=== PATIENT | male | born 1995 | race Hispanic/Latino ===

== ENCOUNTER 2020-10-16 08:29 | Emergency (ER) | payer BC, SELFPAY ==
[2020-10-16 08:31] VITALS: BP 148/92; PULSE 100; RESP 20; TEMP 36.6; O2SAT 100
[2020-10-16 09:05] LABS: Add Urine Microscopic? YES; Appearance Urine Cloudy (Clear); Bacteria Urine Trace /hpf; Bilirubin Urine Negative (Negative); Blood Urine 3+ (Negative); Color Urine Yellow (Yellow); Glucose Urine UA Negative (Negative); Ketones Urine Negative (Negative); Leukocyte Esterase Ur 1+ LEU/UL (Negative); Mucus Urine Rare /lpf; Nitrate Urine Negative (Negative); Protein Urine 1+ mg/dL (Negative); RBC Urine >75 /hpf (0-2); Specific Grav Ur 1.008 (1.001-1.035); Squamous Epithelial Cell Urine Rare /hpf (Few); Urobilinogen Urine Negative mg/dL (<2.0); WBC Urine 31-50 /hpf
[2020-10-16 09:23] LABS: Basophils Percent Auto 0.7 % (0.2-1.2); Eosinophils Absolute Auto 0.1 K/mm3 (0-0.3); Hematocrit 49.5 % (42.0-52.0); Immature Granulocyte Absolute 0.02 K/mm3 (0.00-0.031); Immature Granulocyte Percent A 0.3 % (0-0.5); Lymphocytes Absolute Auto 2.08 K/mm3 (0.9-3.2); Lymphocytes Percent Auto 34.3 % (18.3-44.2); Mean Corpuscular HGB Conc 34.3 g/dl (32-36); Mean Corpuscular Hemoglobin 30.3 pg (26-34); Mean Corpuscular Volume 88.2 fl (80-100); Mean Platelet Volume 9.5 fl (7.4-10.4); Monocytes Absolute Auto 0.4 K/mm3 (0.1-0.6); Monocytes Percent Auto 6.3 % (2.6-8.5); Neutrophils Absolute Auto 3.5 K/mm3 (1.3-6.7); Neutrophils Percent Auto 57.4 % (45.5-73.1); Platelet Count Result 314 k/mm3 (150-375); Red Blood Count 5.61 M/mm3 (4.6-6.20); Red Cell Distribution Width 12.2 % (11.5-14.5); White Blood Count 6.1 K/mm3 (4.5-10.0)
[2020-10-16 09:58] LABS: Alanine Aminotransferase 44 U/L (4-50); Albumin Level 4.9 g/dL (3.5-5.1); Alkaline Phosphatase 61 U/L (38-126); Anion Gap 13 mmol/L (8-16); Aspartate Amino Transferase 78 U/L (17-59); Bilirubin,Total 0.4 mg/dL (0.2-1.3); Blood Urea Nitrogen 8 mg/dL (9-20); Calcium 9.4 mg/dL (8.4-10.2); Carbon Dioxide 24 mmol/L (22-30); Chloride 106 mmol/L (98-107); Estimated CRCL calculation 92 ml/min; Estimated Glomerular Filt Rate > 60; Glucose 106 mg/dL (75-110); Potassium 4.4 mmol/L (3.4-5.0); Sodium 143 mmol/L (137-145)
[2020-10-16] MEDS: SODIUM CHLORIDE 0.9% IV 1,000 ML 999 ML IV CONT (10:39)
--- NOTE | 2020-10-16 11:24 | ED.GENADULT ---
HPI - General Adult General Chief complaint: Unspecified Stated complaint: EJACULATION THEN PEEING BLOOD Time Seen by Provider: 10/16/20 10:05 Source: patient Mode of arrival: ambulatory Limitations: no limitations History of Present Illness HPI narrative: Patient 25-year-old male who presents to emergency department for evaluation of hematuria that began after having intercourse and masturbating notes that he passed pink-tinged urine with some clots denying any pain. Patient denies similar occurrence in the past. On arrival to emergency department patient notes that his urine is beginning to clear and he has no pain. Patient denied any abdominal pain testicular pain or back pain patient has not taken anything for his symptoms Related Data Allergies Allergy/AdvReac Type Severity Reaction Status Date / Time bee venom protein (honey bee) Allergy Severe EDEMA Verified 10/16/20 10:29 Review of Systems Review of Systems: All systems reviewed & are unremarkable except as noted in HPI and below PMFSH Social History Social History (Updated 10/16/20 @ 11:33 by Hamilton Reza PA-C) Smoking status: Never smoker Gender identity (if verbalized by the patient): Male Exam Narrative: Exam Narrative: GENERAL: Well-appearing, well-nourished, and in no acute distress. HEAD: Normocephalic, atraumatic. EYES: PERRLA and EOMI. ENT: Nares clear, no rhinorrhea or epistaxis. Mucous membranes moist. CHEST: Clear to auscultation. No respiratory distress. No wheezes rales or rhonchi HEART: Regular rate and rhythm. No murmur heard. Normal peripheral pulses. ABDOMEN: Soft, nontender, nondistended EXTREMITIES: Normal range of motion. No edema. SKIN: Warm, dry, no rash. NEURO: No focal deficits. Alert and oriented x3. Cranial nerves II through XII grossly intact PSYCH: Normal mood and affect. Course Course Emergency Course: Patient's urine has cleared during the emergency department he was hydrated will have urine culture urine sent off for chlamydia gonorrhea was given fluids and antibiotic in the emergency department patient had a plan developed for follow-up with primary care and urology patient agrees with this plan he has also been given reasons to return if symptoms worsen or concerns and agrees to do so Vital Signs Vital signs: Vital Signs Temperature 98 F 10/16/20 08:31 Pulse Rate 100 10/16/20 08:31 Respiratory Rate 20 10/16/20 08:31 Blood Pressure 148/92 H 10/16/20 08:31 Pulse Oximetry 100 10/16/20 08:31 Temperature 98 F 10/16/20 08:31 Pulse Rate 100 10/16/20 08:31 Respiratory Rate 20 10/16/20 08:31 Blood Pressure 148/92 H 10/16/20 08:31 Pulse Oximetry 100 10/16/20 08:31 Medical Decision Making MDM Narrative Medical decision making narrative: Patient presented with hematuria will be referred to urology and primary care for further evaluation given instructions to return if symptoms worsen hemodynamically stable ABCs and vital signs intact patient will be sent home on antibiotics patient agrees with this plan Vital Signs Vital Signs: Vital Signs Temperature 98 F 10/16/20 08:31 Pulse Rate 100 10/16/20 08:31 Respiratory Rate 20 10/16/20 08:31 Blood Pressure 148/92 H 10/16/20 08:31 Pulse Oximetry 100 10/16/20 08:31 Temperature 98 F 10/16/20 08:31 Pulse Rate 100 10/16/20 08:31 Respiratory Rate 20 10/16/20 08:31 Blood Pressure 148/92 H 10/16/20 08:31 Pulse Oximetry 100 10/16/20 08:31 Lab Data Result diagrams: 10/16/20 09:18 10/16/20 09:18 Labs: Lab Results 10/16/20 10/16/20 10/16/20 Range/Units 08:50 09:18 09:18 WBC 6.1 (4.5-10.0) K/mm3 RBC 5.61 (4.6-6.20) M/mm3 Hgb 17.0 (14.0-18.0) g/dL Hct 49.5 (42.0-52.0) % MCV 88.2 (80-100) fl MCH 30.3 (26-34) pg MCHC 34.3 (32-36) g/dl RDW 12.2 (11.5-14.5) % Plt Count 314 (150-375) k/mm3 MPV 9.5 (7.4-10.4) fl Immature Gran %
[2020-10-16 11:41] VITALS: BP 125/70; PULSE 78; O2SAT 100
== END 2020-10-16 11:43 | disposition home or self-care (01) ==
PROVIDERS: Emergency Medicine Emergency Medical Services; Emergency Provider Emergency Medicine
DX: R31.9 Hematuria, unspecified (principal)
CPT/HCPCS: 36415; 80053; 81001; 85025; 87086; 87491; 87591; 96361; 96374; 99284; J0696; J7030

== ENCOUNTER 2020-10-18 14:06 | Emergency (ER) | payer BC, SELFPAY ==
--- NOTE | ~2020-10-18 | CT_ITS ---
EXAMINATION: CT abdomen pelvis wo con DATE: 10/18/2020 15:54 INDICATION: Right flank pain with hematuria TECHNIQUE: Computed tomography (CT) of the abdomen and pelvis was performed without intravenous contr ast. Automated exposure control and iterative reconstruction technique were employed. The dose-length product was 187.56 mGy-cm. COMPARISON: None FINDINGS: Lung bases are clear. Visualized inferior heart is normal. No pericardial or pleural effusion. Border line elevated hepatic attenuation. Gallbladder, spleen, pancreas and bilateral adrenal glands are nor mal. Kidneys and ureters are normal with no urolithiasis, hydroureteronephrosis or perinephric/ureter al stranding. Normal bladder. Bowels including the appendix are normal with moderate amount of coloni c stool. No free intraperitoneal gas or fluid. No pathologically enlarged abdominal or pelvic lymphad enopathy. Bones are unremarkable. IMPRESSION: 1. Elevated hepatic attenuation which could be seen with iron deposition in the setting of hemosidero sis or hemachromatosis, copper deposition and Rosendo's disease, glycogen storage diseases or with chr onic amiodarone use. 2. No urolithiasis, hydronephrosis or acute intra-abdominal/pelvic process. Reviewed, dictated and finalized at location A. IMPRESSION: 1. Elevated hepatic attenuation which could be seen with iron deposition in the setting of hemosiderosis or hemachromatosis, copper deposition and Rosendo's di sease, glycogen storage diseases or with chronic amiodarone use. 2. No urolithiasis, hydronephrosis or acute intra-abdominal/pelvic process.
[2020-10-18 14:18] VITALS: BP 133/68; PULSE 76; RESP 16; TEMP 36.4; O2SAT 100
[2020-10-18 14:35] LABS: Basophils Percent Auto 0.4 % (0.2-1.2); Eosinophils Absolute Auto 0.1 K/mm3 (0-0.3); Eosinophils Percent Auto 2.5 % (0-4.4); Hematocrit 44.3 % (42.0-52.0); Hemoglobin 15.2 g/dL (14.0-18.0); Immature Granulocyte Absolute 0.01 K/mm3 (0.00-0.031); Immature Granulocyte Percent A 0.2 % (0-0.5); Lymphocytes Absolute Auto 1.81 K/mm3 (0.9-3.2); Lymphocytes Percent Auto 32.7 % (18.3-44.2); Mean Corpuscular HGB Conc 34.3 g/dl (32-36); Mean Corpuscular Hemoglobin 30.2 pg (26-34); Mean Corpuscular Volume 88.1 fl (80-100); Mean Platelet Volume 9.5 fl (7.4-10.4); Monocytes Absolute Auto 0.5 K/mm3 (0.1-0.6); Monocytes Percent Auto 8.1 % (2.6-8.5); Neutrophils Absolute Auto 3.1 K/mm3 (1.3-6.7); Neutrophils Percent Auto 56.1 % (45.5-73.1); Platelet Count Result 274 k/mm3 (150-375); Red Blood Count 5.03 M/mm3 (4.6-6.20); White Blood Count 5.5 K/mm3 (4.5-10.0)
[2020-10-18 14:48] LABS: Anion Gap 7 mmol/L (8-16); Blood Urea Nitrogen 13 mg/dL (9-20); Calcium 9.1 mg/dL (8.4-10.2); Carbon Dioxide 30 mmol/L (22-30); Chloride 101 mmol/L (98-107); Estimated CRCL calculation 92 ml/min; Estimated Glomerular Filt Rate > 60; Glucose 83 mg/dL (75-110); Potassium 3.8 mmol/L (3.4-5.0); Sodium 138 mmol/L (137-145)
[2020-10-18 14:52] LABS: Add Urine Microscopic? YES; Appearance Urine Cloudy (Clear); Bilirubin Urine Negative (Negative); Blood Urine Negative (Negative); Color Urine Yellow (Yellow); Glucose Urine UA Negative (Negative); Ketones Urine Negative (Negative); Leukocyte Esterase Ur Trace LEU/UL (Negative); Nitrate Urine Negative (Negative); Protein Urine Negative (Negative); RBC Urine 0-2 /hpf (0-2); Specific Grav Ur 1.015 (1.001-1.035)
--- NOTE | 2020-10-18 17:11 | ED.GENADULT ---
HPI - General Adult General Chief complaint: Back Pain/Injury Stated complaint: back pain Time Seen by Provider: 10/18/20 15:24 Source: patient Mode of arrival: ambulatory Limitations: no limitations History of Present Illness HPI narrative: Patient is a 25-year-old male presented to emergency department for evaluation of occasional right-sided pain. He states occasionally he feels some discomfort to the front lower abdomen. Was seen in this emergency department on 10-16-20 for evaluation hematuria after having sexual intercourse and masturbating. The urine culture report was negative. Patient states that he spoke with his primary care today when he mentions noted occasional pain to his right side they wanted him to be ruled out for kidney stones. He states he has not noticed any blood in his urine. He denies fever, chills, nausea, vomiting. He states that the pain is random and very mild. He denies any other symptoms or concerns. He has not taken anything for his symptoms. Related Data Allergies Allergy/AdvReac Type Severity Reaction Status Date / Time bee venom protein (honey bee) Allergy Severe EDEMA Verified 10/16/20 10:29 Review of Systems Review of Systems: Narrative: CONSTITUTIONAL: Denies fever, chills, or sweats. EYES: Denies visual changes, redness, or discharge. ENT: Denies rhinorrhea, congestion, sore throat, or otalgia. CARDIOVASCULAR: Denies chest pain, palpitations, or edema. RESPIRATORY: Denies cough or dyspnea. GASTROINTESTINAL: Denies abdominal pain, nausea, vomiting, or diarrhea. GENITOURINARY: Denies dysuria or hematuria. SKIN: Denies rash or itching. MUSCULOSKELETAL: Reports intermittent right flank pain denies back pain, joint pain, or myalgia. NEUROLOGIC: Denies headache, numbness, dizziness, or weakness. PSYCHIATRIC: Denies anxiety or depression. [facility] Social History Social History (Updated 10/16/20 @ 11:33 by Hamilton Reza PA-C) Smoking status: Never smoker Gender identity (if verbalized by the patient): Male Exam Narrative: Exam Narrative: GENERAL: Well-appearing, well-nourished.Patient doesn't appear to be in any discomfort. HEAD: Normocephalic, atraumatic. EYES: PERRLA and EOMI. NECK: Supple. No adenopathy or masses. No vertebral tenderness or loss of ROM. CHEST: Clear to auscultation. No respiratory distress. No wheezes rales or rhonchi HEART: Regular rate and rhythm. Normal peripheral pulses. ABDOMEN: No CVA tenderness. Soft, nontender, nondistended, normal active bowel sounds. No bruises noted. EXTREMITIES: No acute changes in ROM. No edema. SKIN: Warm, dry, no rash. NEURO: No focal deficits. Alert and oriented x3. PSYCH: Normal mood and affect. Course Vital Signs Vital signs: Vital Signs Temperature 97.6 F 10/18/20 14:18 Pulse Rate 76 10/18/20 14:18 Respiratory Rate 16 10/18/20 14:18 Blood Pressure 133/68 10/18/20 14:18 Pulse Oximetry 100 10/18/20 14:18 Temperature 97.6 F 10/18/20 14:18 Pulse Rate 76 10/18/20 14:18 Respiratory Rate 16 10/18/20 14:18 Blood Pressure 133/68 10/18/20 14:18 Pulse Oximetry 100 10/18/20 14:18 Medical Decision Making MDM Narrative Medical decision making narrative: Patient's urine culture was negative. Patient does not have any hematuria. Patient CT was negative. He is not having discomfort at this time. Patient is instructed to follow-up with his primary care and return to emergency department if he has any worsening or emergent symptoms. Differential Diagnosis Differential Diagnosis: Hematuria, cystitis, urolithiasis Vital Signs Vital Signs: Vital Signs Temperature 97.6 F 10/18/20 14:18 Pulse Rate 76 10/18/20 14:18 Respiratory Rate 16 10/18/20 14:18 Blood Pressure 133/68 10/18/20 14:18 Pulse Oximetry 100 10/18/20 14:18 Temperature 97.6 F 10/18/20 14:18 Pulse Rate 76 10/18/20 14:18 Respiratory Rate 16 10/18/20 14:18 Blood Pressure 133/68 10/18/20 14:18 Pulse
[2020-10-18 17:53] VITALS: BP 120/72; PULSE 70; RESP 17; O2SAT 98
== END 2020-10-18 17:54 | disposition home or self-care (01) ==
PROVIDERS: Emergency Medicine; Emergency Provider Emergency Medicine
DX: M54.9 Dorsalgia, unspecified (principal); R93.2 Abnormal findings on diagnostic imaging of liver and biliary tract
CPT/HCPCS: 36415; 74176; 80048; 81001; 85025; 87086; 99284

== ENCOUNTER 2021-04-12 14:12 | Emergency (ER) | payer BC, SELFPAY ==
[2021-04-12 14:56] VITALS: BP 137/79; PULSE 61; RESP 16; TEMP 36.1; O2SAT 99
--- NOTE | 2021-04-12 15:21 | ED.GENADULT ---
HPI - General Adult General Chief complaint: Unspecified Time Seen by Provider: 04/12/21 15:15 Source: patient and RN notes reviewed Mode of arrival: ambulatory Limitations: no limitations History of Present Illness HPI narrative: Patient presents today after being stung by a bee on his chin around 1300 today. He is questing an EpiPen. He did have an anaphylactic reaction as a child and states his workplace is requiring him keep an EpiPen on him. States last time he was stung by bee he did require several days of steroids and is wondering if this would be a good idea for him today. Denies shortness of breath, difficulty swallowing, or any additional symptoms currently. MD complaint: Bee sting Related Data Allergies Allergy/AdvReac Type Severity Reaction Status Date / Time bee venom protein (honey bee) Allergy Severe EDEMA Verified 04/12/21 14:59 Review of Systems Review of Systems: CONSTITUTIONAL: Denies body aches, fever, chills, or sweats. EYES: Denies visual changes, redness, or discharge. ENT: Denies rhinorrhea, congestion, sore throat, or otalgia. CARDIOVASCULAR: Denies chest pain, palpitations, or edema. RESPIRATORY: Denies cough or dyspnea. GASTROINTESTINAL: Denies abdominal pain, nausea, vomiting, or diarrhea. GENITOURINARY: Denies dysuria or hematuria. SKIN: Denies rash, itching, or wounds. + Bee sting MUSCULOSKELETAL: Denies back pain, joint pain, or myalgia. NEUROLOGIC: Denies headache, numbness, tingling, or weakness. PSYCH: Denies depression or anxiety. PMFSH Social History Social History Smoking status: Never smoker Gender identity (if verbalized by the patient): Male Comments At time of signature, I have reviewed and agree with nursing past medical, surgical, social and family history unless otherwise noted. Please see nursing chart for further information. There is no relevant family history pertinent to the presenting complaint Exam Narrative: GENERAL: Well-appearing, well-nourished, and in no acute distress. HEAD: Normocephalic, atraumatic. EYES: EOMI. No redness or drainage. Conjunctivae normal. ENT: Mucous membranes pink and moist. NECK: Normal AROM. No obvious bee sting or localized swelling noted to the right chin. CHEST: No respiratory distress. Clear to auscultation. HEART: Regular rate and rhythm. No murmur appreciated. Normal peripheral pulses. EXTREMITIES: Normal range of motion. No edema. SKIN: Warm, dry, no rash. Capillary refill normal. Normal skin turgor. NEURO: No focal deficits. Alert and oriented x3. Gait steady. PSYCH: Normal affect. No signs of depression or anxiety. Course Vital Signs Vital signs: Vital Signs Temperature 97.0 F L 04/12/21 14:56 Pulse Rate 61 04/12/21 14:56 Respiratory Rate 16 04/12/21 14:56 Blood Pressure 137/79 04/12/21 14:56 Pulse Oximetry 99 04/12/21 14:56 Temperature 97.0 F L 04/12/21 14:56 Pulse Rate 61 04/12/21 14:56 Respiratory Rate 16 04/12/21 14:56 Blood Pressure 137/79 04/12/21 14:56 Pulse Oximetry 99 04/12/21 14:56 Reviewed. Pt has been instructed to follow up with his PCP regarding his elevated blood pressure today. Medical Decision Making Differential Diagnosis Differential Diagnosis: Bee sting, anaphylaxis, allergic reaction insect sting Vital Signs Vital Signs: Vital Signs Temperature 97.0 F L 04/12/21 14:56 Pulse Rate 61 04/12/21 14:56 Respiratory Rate 16 04/12/21 14:56 Blood Pressure 137/79 04/12/21 14:56 Pulse Oximetry 99 04/12/21 14:56 Temperature 97.0 F L 04/12/21 14:56 Pulse Rate 61 04/12/21 14:56 Respiratory Rate 16 04/12/21 14:56 Blood Pressure 137/79 04/12/21 14:56 Pulse Oximetry 99 04/12/21 14:56 Critical Care Time Critical Care Time Critical Care Time: No Discharge Plan Discharge Clinical Impression: Bee sting Qualifiers: Encounter type: initial encounter Injury intent: acc
== END 2021-04-12 15:30 | disposition home or self-care (01) ==
PROVIDERS: Emergency Provider Nurse Practitioner
DX: T63.441A Toxic effect of venom of bees, accidental (unintentional), initial encounter (principal)
CPT/HCPCS: 99213; G0463

== ENCOUNTER 2022-04-04 17:25 | Emergency (ER) | payer BC, SELFPAY ==
[2022-04-04 17:38] VITALS: BP 132/76; PULSE 62; RESP 16; TEMP 36.1; O2SAT 99
--- NOTE | 2022-04-04 17:46 | ED.URI ---
HPI - URI/Sore Throat General Chief Complaint: Upper Respiratory Infection Stated Complaint: sore throat Time Seen by Provider: 04/04/22 17:46 Source: patient and RN notes reviewed Mode of arrival: ambulatory Limitations: no limitations History of Present Illness HPI Narrative: 27-year-old male presents to the [facility] with complaints of sore throat that started just prior to arrival. No other symptoms. He is requesting a work note. Related Data Home Medications Medication Instructions Recorded Confirmed No Home Medications 04/04/22 04/04/22 Allergies Allergy/AdvReac Type Severity Reaction Status Date / Time bee venom protein (honey bee) Allergy Severe EDEMA Verified 04/04/22 17:43 Review of Systems Review of Systems: All systems reviewed & are unremarkable except as noted in HPI and below Constitutional: Constitutional: Reports no additional constitutional complaints, Denies chills and Denies fever(s) Eyes: Eyes: Reports no additional eye complaints ENT: Reports as per HPI and Reports sore throat Cardiovascular: Cardiovascular: Reports no additional cardiovascular complaints Respiratory: Respiratory: Reports no additional respiratory complaints Gastrointestinal: Gastrointestinal: Reports no additional gastrointestinal complaints Musculoskeletal: Musculoskeletal: Reports no additional musculoskeletal complaints Integumentary/Breasts: Skin/Breast: Reports system reviewed and no additional complaints, except as docu Neurologic: Reports system reviewed and no additional complaints, except as documented Psychiatric: Psychiatric: Reports no additional psychiatric complaints Allergic/Immunologic: Allergic/Immunologic: Reports no additional allergic/immunologic complaints PMFSH Social History Social History Smoking status: Never smoker Gender identity (if verbalized by the patient): Male Comments At the time of my signature, I reviewed and agree with the nursing past medical, surgical, social, and family history. There is no relevant family history pertinent to the patient complaint. Exam Const: General: healthy appearing, no acute distress and alert Nutritional Appearance: well nourished Orientation/consciousness: patient oriented x3 Limitations: no limitations HENMT: Head: normal to inspection Ears: external ears normal Throat: posterior oropharynx normal and uvula midline Eyes: General: appearance normal, both eyes and all related structures Pupils: Equal, round and reactive pupils present Neck: Neck: normal visual inspection, no lymphadenopathy and no meningeal signs Chest: Chest palpation & inspection: normal inspection of the chest Resp: Effort & Inspection: normal respiratory effort and no use of accessory muscles Auscultation: clear to auscultation bilaterally, no crackles, no rales, no rhonchi and no wheezes Cardio: Rate: regular rate Rhythm: regular rhythm GI: GI Palp: Yes Soft to palpation and No Tenderness to palpation present (GI) Back/Spine/Pelvis: Cervical Spine: normal cervical lordosis Thoracic/Lumbar Spine: thoracic and lumbar spine normal to inspection Skin: General skin exam: normal color Rashes: no rashes Wounds: no wounds Neuro: General: patient oriented x3, moves all extremities, no meningeal signs and no focal motor deficits Cranial nerves: Yes Equal, round and reactive pupils present Speech: normal speech Gait exam (Neuro): Normal gait present Extrem: General: normal to inspection, full ROM and capillary refill normal Psych: Appearance: grossly normal and well kempt Mental Status: mental status grossly normal Affect: normal affect Attitude: cooperative Thought content: Yes Normal thought content present Course Course Emergency Course: Discharge instructions reviewed with patient, as well as provided in writing per nursing staff. The instructions also include specific and strict return/GO TO
== END 2022-04-04 18:44 | disposition home or self-care (01) ==
PROVIDERS: Emergency Provider Nurse Practitioner; Referring Provider Internal Medicine
DX: J06.9 Acute upper respiratory infection, unspecified (principal)
CPT/HCPCS: 87081; 99212; G0463

== ENCOUNTER 2023-07-27 18:00 | Emergency (ER) | payer OTHER, SELFPAY ==
[2023-07-27 18:18] VITALS: BP 134/77; PULSE 85; RESP 16; TEMP 37.3; O2SAT 99
--- NOTE | 2023-07-27 19:08 | ED.URI ---
HPI - URI/Sore Throat General Chief Complaint: Upper Respiratory Infection Stated Complaint: fever,bodyaches,cough Time Seen by Provider: 07/27/23 19:08 Source: patient Mode of arrival: ambulatory Limitations: no limitations History of Present Illness HPI Narrative: 28-year-old male presents with complaint of cough, nasal congestion, fatigue, body aches, chills, headaches for the past 3 days. Thinks he had a fever but did not check temperature. Taking [id number] Tylenol to treat. Denies nausea vomiting diarrhea. All systems reviewed and negative except as noted above. Related Data Home Medications Medication Instructions Recorded Confirmed No Home Medications 04/04/22 07/27/23 Allergies Allergy/AdvReac Type Severity Reaction Status Date / Time bee venom protein (honey bee) Allergy Severe EDEMA Verified 07/27/23 18:46 Review of Systems Review of Systems: CONSTITUTIONAL: Reports fever, chills, or sweats. EYES: Denies visual changes, redness, or discharge. ENT: reports rhinorrhea, congestion, sore throat. Denies otalgia. CARDIOVASCULAR: Denies chest pain, palpitations, or edema. RESPIRATORY: reports cough. Denies dyspnea. GASTROINTESTINAL: Denies abdominal pain, nausea, vomiting, or diarrhea. GENITOURINARY: Denies dysuria or hematuria. SKIN: Denies rash or itching. MUSCULOSKELETAL: Denies back pain, joint pain. Reports myalgia. NEUROLOGIC: Denies headache, numbness, or weakness. PSYCHIATRIC: Denies anxiety or depression. All other systems reviewed are negative, except as documented in HPI. PMFSH Social History Social History Smoking status: Never smoker Gender identity (if verbalized by the patient): Male Comments At time of signature, agree with nursing past medical, surgical, social and family history. There is no relevant family history pertinent to the presenting complaint. Exam Narrative: GENERAL: This is a well-nourished, well-developed patient, in no apparent distress. HEAD: normocephalic, atraumatic. EYES: PERRL. Sclera clear/white. Vision is grossly intact. EARS: External ears normal, auditory canals clear and without drainage, TMs normal without perforation. Hearing grossly intact. NOSE: External nose normal with clear nasal drainage THROAT: Mucous membranes moist, posterior pharynx clear. NECK: Neck supple, non-tender without lymphadenopathy, masses or thyromegaly. CARDIOVASCULAR: Regular rate and rhythm without murmurs, gallops, or rubs. RESPIRATORY: Clear to auscultation. Breath sounds equal bilaterally. No wheezes, rales, or rhonchi. SKIN: warm, Dry, intact with no suspicious lesions or rash, good texture and turgor. NEURO: awake, alert, and oriented to person, place and time. There were no obvious focal neurologic abnormalities. EXTREMITIES: No joint tenderness, effusion, or edema noted. Course Course Level of Care: Express Care Visit Vital Signs Vital signs: Vital Signs Temperature 37.3 C 07/27/23 18:18 Pulse Rate 85 07/27/23 18:18 Respiratory Rate 16 07/27/23 18:18 Blood Pressure 134/77 07/27/23 18:18 Pulse Oximetry 99 07/27/23 18:18 Oxygen Delivery Room Air 07/27/23 18:18 Temperature 37.3 C 07/27/23 18:18 Pulse Rate 85 07/27/23 18:18 Respiratory Rate 16 07/27/23 18:18 Blood Pressure 134/77 07/27/23 18:18 Pulse Oximetry 99 07/27/23 18:18 Oxygen Delivery Room Air 07/27/23 18:18 reviewed MDM - URI/Sore Throat Differential Diagnosis Differential diagnosis: Likely influenza Discharge Plan Discharge Clinical Impression: Influenza B Patient Disposition: Home, Self-Care Condition: Stable Instructions: Influenza (ED) Additional Instructions: You were positive for influenza B today. Influenza is a virus and symptoms may last 7-10 days. Taking [id number] medication to treat her symptoms such as DayQuil NyQuil cold and flu. Richard
== END 2023-07-27 19:23 | disposition home or self-care (01) ==
PROVIDERS: Emergency Provider Nurse Practitioner Family
DX: J10.1 Influenza due to other identified influenza virus with other respiratory manifestations (principal); Z20.822 Contact with and (suspected) exposure to COVID-19
CPT/HCPCS: 87426; 87804; 99213; C9803; G0463

== ENCOUNTER 2023-07-30 09:07 | Emergency (ER) | payer OTHER, SELFPAY ==
--- NOTE | 2023-07-30 09:09 | ED.URI ---
HPI - URI/Sore Throat General Stated Complaint: Cough Time Seen by Provider: 07/30/23 09:08 Source: patient Mode of arrival: ambulatory Limitations: no limitations History of Present Illness HPI Narrative: Patient is a 28-year-old male who presents with cough. Patient was diagnosed with the flu on Saturday and states since then his cough has worsened and he feels a burning when he coughs. Patient has taken 400 mg of ibuprofen once with no relief of symptoms. Patient denies any fever, chills, nausea, vomiting, diarrhea, congestion. Related Data Allergies Allergy/AdvReac Type Severity Reaction Status Date / Time bee venom protein (honey bee) Allergy Severe EDEMA Verified 07/27/23 18:46 Review of Systems Review of Systems: All systems reviewed & are unremarkable except as noted in HPI and below Constitutional: Constitutional: Denies body ache(s), Denies chills, Denies fatigue, Denies fever(s), Denies headache(s), Denies malaise and Denies weakness Eyes: Eyes: Denies blurry vision, Denies itchy eyes and Denies loss of vision ENT: Denies otalgia, Denies headache(s), Denies nasal congestion, Denies sinus pain and Denies sore throat Cardiovascular: Cardiovascular: Denies chest pain, Denies irregular heart rhythm and Denies dyspnea Respiratory: Respiratory: Reports cough and Denies dyspnea Gastrointestinal: Gastrointestinal: Denies abdominal pain, Denies diarrhea, Denies nausea and Denies vomiting Musculoskeletal: Musculoskeletal: Denies back pain, Denies myalgias and Denies arthralgias Integumentary/Breasts: Skin/Breast: Denies pruritus and Denies rash Neurologic: Denies headache(s), Denies loss of vision and Denies weakness Psychiatric: Psychiatric: Reports no additional psychiatric complaints Endocrine: Endocrine: Denies fatigue Allergic/Immunologic: Allergic/Immunologic: Denies itchy eyes PMFSH Social History Social History Smoking status: Never smoker Gender identity (if verbalized by the patient): Male Comments At time of signature, agree with nursing past medical, surgical, social and family history. There is no relevant family history pertinent to the presenting complaint. Exam Const: General: cooperative, healthy appearing, comfortable, no acute distress and well nourished Nutritional Appearance: well nourished Orientation/consciousness: patient oriented x3 Limitations: no limitations HENMT: Head: normal to inspection, normocephalic and atraumatic Ears: hearing grossly normal bilaterally, external ears normal, TM's normal bilaterally, EAC's normal and no periauricular adenopathy Face/Nose/Sinus: Normal external nose present, Abnormal mucous membranes and turbinates present erythematous bilateral and diffuse, normal facial exam, sinuses nontender and face symmetric Face and sinus: normal facial exam, sinuses nontender and face symmetric Mouth: Yes Normal oral and palatal mucosa present, Yes lip normal, Yes tongue normal, Yes Normal salivary glands and ducts present, Yes oropharynx normal and Yes moist mucous membranes Teeth and gingiva: dentition normal Throat: posterior oropharynx normal, tonsils normal and uvula midline Eyes: General: appearance normal, both eyes and all related structures Alignment and Position: alignment normal and position normal Periorbital: periorbital findings normal Eyelids: eyelids normal Pupils: Equal, round and reactive pupils present Neck: Neck: normal visual inspection, full ROM, no lymphadenopathy and supple Chest: Chest palpation & inspection: normal inspection of the chest and normal palpation of entire chest wall Resp: Effort & Inspection: normal respiratory effort and able to speak in complete sentences Auscultation: clear to auscultation bilaterally, no crackles, no rales, no rhonchi and no wheezes Cardio: Rate: regular rate Rhythm: regular rhythm Heart sounds: S1 normal heart sound present and S2 normal hea
[2023-07-30 09:15] VITALS: BP 135/80; PULSE 79; RESP 16; TEMP 37; O2SAT 99
== END 2023-07-30 09:34 | disposition home or self-care (01) ==
PROVIDERS: Emergency Provider Nurse Practitioner Family
DX: J40 Bronchitis, not specified as acute or chronic (principal)
CPT/HCPCS: 99213; G0463

== ENCOUNTER 2023-08-04 08:45 | Emergency (ER) | payer OTHER, SELFPAY ==
--- NOTE | ~2023-08-04 | XR_ITS ---
XR chest 2V DATE: 08/04/2023 09:58 INDICATION: Cough TECHNIQUE: PA and lateral views COMPARISON: None FINDINGS: There is patchy consolidating infiltrate of the lingula, most consistent with pneumonia. The remaining lung avery are clear. The lungs are mildly hyperinflated. No pleural effusion or pulmonary mass congestion or pneumothorax. Normal heart size. No hilar or mediastinal enlargement. Included skeletal structures are unremarkable. IMPRESSION: Patchy consolidating lingular infiltrate likely due to pneumonia Reviewed, dictated and finalized at location A. 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
--- NOTE | 2023-08-04 09:33 | ED.URI ---
HPI - URI/Sore Throat General Chief Complaint: Upper Respiratory Infection Stated Complaint: throat swelling/pain Time Seen by Provider: 08/04/23 09:11 Source: patient Mode of arrival: ambulatory Limitations: no limitations History of Present Illness HPI Narrative: This is a 28 year old male that presents to the ER for cold symptoms. Reports he was diagnosed with influenza on 07/27. He was starting to feel better, but woke up again this morning with worsening symptoms. Reports sore throat, congestion and chills. Denies fever or shortness of breath. Related Data Allergies Allergy/AdvReac Type Severity Reaction Status Date / Time bee venom protein (honey bee) Allergy Severe EDEMA Verified 08/04/23 08:45 Review of Systems Review of Systems: CONSTITUTIONAL: Denies fever ENT: Reports congestion, sore throat RESPIRATORY: Reports cough. Denies dyspnea. All systems reviewed & are unremarkable except as noted in HPI and below PMFSH Past Medical History Medical History (Updated 08/04/23 @ 10:41 by Abby Molina PA-C) No active medical problems Social History Social History Smoking status: Never smoker Gender identity (if verbalized by the patient): Male Exam Narrative: GENERAL: Well-appearing, well-nourished, and in no acute distress. HEAD: Normocephalic, atraumatic. EYES: EOMI. ENT: Nares clear, no rhinorrhea or epistaxis. Mucous membranes moist. Oropharynx with mild redness, without tonsillar hypertrophy, exudate or other lesions. Bilateral TMs pearly harper non-bulging NECK: Supple. No adenopathy or masses. CHEST: Clear to auscultation. No respiratory distress. No wheezes rales or rhonchi HEART: Regular rate and rhythm. No murmur heard. Normal peripheral pulses. EXTREMITIES: Normal range of motion. No edema. SKIN: Warm, dry, no rash. NEURO: No focal deficits. Alert and oriented x3. PSYCH: Normal mood and affect Course Course Emergency Course: patient updated on workup and agrees with plan of care Vital Signs Vital signs: Vital Signs Oxygen Delivery Room Air 08/04/23 08:52 Temperature 98.6 F 08/04/23 09:36 Pulse Rate 77 08/04/23 09:36 Respiratory Rate 20 08/04/23 09:36 Blood Pressure 112/60 08/04/23 09:36 Pulse Oximetry 100 08/04/23 09:36 Oxygen Delivery Room Air 08/04/23 08:52 MDM - URI/Sore Throat MDM Narrative Medical decision making narrative: Patient presents to the emergency department for cold symptoms. He is afebrile and nontoxic appearing. Oxygen saturation is 100% on room air. Lungs are clear on exam. Patient influenza B positive. He did test positive for this on July 27, likely residual. Chest x-ray does show evidence for pneumonia. Patient will be treated with oral antibiotics. He is to follow up with primary provider. He was given warnings to return to the ER Differential Diagnosis Differential diagnosis: Likely upper respiratory infection, viral infection, bronchitis, influenza, pharyngitis and other ( pneumonia) Lab Data Attestation: I reviewed the patient's lab results. Labs: Lab Results 08/04/23 Range/Units 09:16 Influenza A (RT-PCR) Negative (Negative) Influenza B (RT-PCR) Positive A (Negative) RSV (RT-PCR) Negative (Negative) SARS-CoV-2 RNA (RT-PCR) Negative (Negative) Group A Strep (PCR) Not detected (Negative) Imaging Data Radiologist's impression: ITS Impressions Chest X-Ray 08/04/23 10:00 IMPRESSION: Patchy consolidating lingular infiltrate likely due to pneumonia Critical Care Time Critical Care Time Critical Care Time: No Discharge Plan Discharge Clinical Impression: Pneumonia Qualifiers: Pneumonia type: due to unspecified organism Laterality: left Lung location: lower lobe of lung Qualified Code(s): J18.9 - Pneumonia, unspecified organism Patient Disposition: Home, Self-Care Condition: Stable
[2023-08-04 09:36] VITALS: BP 112/60; PULSE 77; RESP 20; TEMP 37; O2SAT 100
[2023-08-04] MEDS: ACETAMINOPHEN 500 MG TABLET 1000 MG PO (09:39)
[2023-08-04 09:59] LABS: Strep Group A RT-PCR NOT DETECTED (Negative)
[2023-08-04 10:09] LABS: Influenza A QL RT-PCR Negative (Negative); Influenza B QL RT-PCR Positive (Negative); RSV RNA, RT-PCR Negative (Negative); SARS-CoV-2 RNA PCR Negative (Negative)
[2023-08-04 10:49] VITALS: BP 116/83; PULSE 97; RESP 20; O2SAT 98
== END 2023-08-04 10:50 | disposition home or self-care (01) ==
PROVIDERS: Emergency Provider Physician Assistant
DX: J18.9 Pneumonia, unspecified organism (principal)
CPT/HCPCS: 71046; 87637; 87651; 99283; A9270

== ENCOUNTER 2023-08-13 09:12 | Outpatient (CLI) | payer OTHER, SELFPAY ==
--- NOTE | ~2023-08-13 | XR_ITS ---
Clinical Indication: Pneumonia PA and lateral views of the chest: Comparison: 08/04/2023 Findings: Patchy lingular airspace disease is unchanged. Right lung clear. Cardiomediastinal silhoue tte is within normal limits. Bones and soft tissues are unremarkable. Impression: Stable presumed lingular pneumonia. Reviewed, dictated and finalized at [facility]. [employer] OUTREACH ADVOCATE Impression: Stable presumed lingular pneumonia.
[2023-08-13 10:14] LABS: Hematocrit 44.7 % (42.0-52.0); Hemoglobin 14.6 g/dL (14.0-18.0); Mean Corpuscular HGB Conc 32.7 g/dl (32-36); Mean Corpuscular Hemoglobin 29.3 pg (26-34); Mean Corpuscular Volume 89.8 fl (80-100); Mean Platelet Volume 8.7 fl (7.4-10.4); Platelet Count Result 665 k/mm3 (150-375); Red Blood Count 4.98 M/mm3 (4.6-6.20); Red Cell Distribution Width 12.3 % (11.5-14.5); White Blood Count 20.1 K/mm3 (4.5-10.0)
[2023-08-13 10:32] LABS: Alanine Aminotransferase 53 U/L (6-50); Albumin Level 4.2 g/dL (3.5-5.1); Alkaline Phosphatase 71 U/L (38-126); Anion Gap 7 mmol/L (8-16); Aspartate Amino Transferase 30 U/L (17-59); Bilirubin,Total 0.8 mg/dL (0.2-1.3); Blood Urea Nitrogen 13 mg/dL (9-20); Calcium 9.2 mg/dL (8.4-10.2); Carbon Dioxide 33 mmol/L (22-30); Chloride 99 mmol/L (98-107); Estimated Glomerular Filt Rate > 60; Glucose 96 mg/dL (65-110); Potassium 3.7 mmol/L (3.4-5.0); Sodium 139 mmol/L (137-145)
[2023-08-13 10:38] LABS: Lymphocytes Absolute Manual 2.61 K/mm3 (1.1-4.5); Monocytes Percent Manual 8 % (3-9); Neutrophils Percent Manual 79 % (46-73); Platelet Estimate Increased (Adequate); Schistocytes None Seen (NORMAL); Total Cells Counted 100
== END 2023-08-13 09:13 | disposition home or self-care (01) ==
PROVIDERS: PCP Nurse Practitioner Family; Visit Provider Nurse Practitioner Family
DX: J18.9 Pneumonia, unspecified organism (principal); R04.2 Hemoptysis
CPT/HCPCS: 36415; 71046; 80053; 85025

== ENCOUNTER 2023-08-21 11:20 | Outpatient (CLI) | payer OTHER, SELFPAY ==
[2023-08-21 11:41] LABS: Basophils Percent Auto 0.3 % (0.2-1.2); Eosinophils Absolute Auto 0.1 K/mm3 (0-0.3); Eosinophils Percent Auto 1.4 % (0-4.4); Hematocrit 41.3 % (42.0-52.0); Hemoglobin 13.3 g/dL (14.0-18.0); Immature Granulocyte Absolute 0.04 K/mm3 (0.00-0.031); Immature Granulocyte Percent A 0.4 % (0-0.5); Lymphocytes Absolute Auto 1.68 K/mm3 (0.9-3.2); Lymphocytes Percent Auto 18.2 % (18.3-44.2); Mean Corpuscular HGB Conc 32.2 g/dl (32-36); Mean Corpuscular Volume 90.2 fl (80-100); Mean Platelet Volume 8.7 fl (7.4-10.4); Monocytes Absolute Auto 0.6 K/mm3 (0.1-0.6); Monocytes Percent Auto 6.9 % (2.6-8.5); Neutrophils Absolute Auto 6.7 K/mm3 (1.3-6.7); Neutrophils Percent Auto 72.8 % (45.5-73.1); Platelet Count Result 453 k/mm3 (150-375); Red Blood Count 4.58 M/mm3 (4.6-6.20); Red Cell Distribution Width 12.3 % (11.5-14.5); White Blood Count 9.2 K/mm3 (4.5-10.0)
[2023-08-21 11:54] LABS: Alanine Aminotransferase 30 U/L (6-50); Albumin Level 4.2 g/dL (3.5-5.1); Alkaline Phosphatase 72 U/L (38-126); Anion Gap 6 mmol/L (8-16); Aspartate Amino Transferase 27 U/L (17-59); Bilirubin,Total 0.5 mg/dL (0.2-1.3); Blood Urea Nitrogen 9 mg/dL (9-20); Calcium 9.2 mg/dL (8.4-10.2); Carbon Dioxide 31 mmol/L (22-30); Chloride 103 mmol/L (98-107); Estimated Glomerular Filt Rate > 60; Glucose 95 mg/dL (65-110); Potassium 4.2 mmol/L (3.4-5.0); Sodium 140 mmol/L (137-145)
== END 2023-08-21 11:21 | disposition home or self-care (01) ==
LOC: ANHLAB 11:21
PROVIDERS: PCP Nurse Practitioner Family; Visit Provider Nurse Practitioner Family
DX: J18.9 Pneumonia, unspecified organism (principal)
CPT/HCPCS: 36415; 80053; 85025

== ENCOUNTER 2024-09-21 14:57 | Emergency (ER) | payer OTHER, SELFPAY ==
[2024-09-21 15:00] VITALS: BP 133/71; PULSE 77; RESP 17; TEMP 36.4; O2SAT 100
--- NOTE | 2024-09-21 15:39 | ECG_ITS ---
Test Date: 2024-09-21 16:22:51 Measurements Intervals [place] Rate: 75 P: 69 WV: 120 QRS: 85 QRSD: 82 T: 65 QT: 359 QTc: 403 Interpretive Statements SINUS RHYTHM ST ELEVATION IN DIFFUSE LEADS, PROBABLY EARLY REPOLARIZATION BORDERLINE ECG No previous ECG available for comparison Electronically Signed On 09-21-2024 16:23:50 DISTRESSER by Jose Delgado D.O.
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
[2024-09-21 16:26] LABS: Basophils Percent Auto 0.3 % (0.2-1.2); Eosinophils Absolute Auto 0.2 K/mm3 (0-0.3); Eosinophils Percent Auto 1.7 % (0-4.4); Hematocrit 47.8 % (42.0-52.0); Hemoglobin 16.5 g/dL (14.0-18.0); Immature Granulocyte Absolute 0.02 K/mm3 (0.00-0.031); Immature Granulocyte Percent A 0.2 % (0-0.5); Lymphocytes Absolute Auto 2.76 K/mm3 (0.9-3.2); Lymphocytes Percent Auto 31.1 % (18.3-44.2); Mean Corpuscular HGB Conc 34.5 g/dl (32-36); Mean Corpuscular Hemoglobin 30.3 pg (26-34); Mean Corpuscular Volume 87.9 fl (80-100); Mean Platelet Volume 9.1 fl (7.4-10.4); Monocytes Absolute Auto 0.9 K/mm3 (0.1-0.6); Monocytes Percent Auto 9.8 % (2.6-8.5); Neutrophils Percent Auto 56.9 % (45.5-73.1); Platelet Count Result 310 k/mm3 (150-375); Red Blood Count 5.44 M/mm3 (4.6-6.20); Red Cell Distribution Width 12.6 % (11.5-14.5); White Blood Count 8.9 K/mm3 (4.5-10.0)
[2024-09-21 16:38] LABS: Lactic Acid Reflex 2.1 mmol/L (0.7-2.0)
[2024-09-21 16:49] LABS: Troponin I < 0.012 ng/mL (0.000-0.034)
--- OUTSIDE RECORDS SUMMARY | 2024-09-21 17:24 | XMS_ITS | Clinical Summary ---
Author Organization [facility] Address [address] [place] [id number] Care Team Providers Care Education Spec Name Role Phone Unavailable Primary Care Provider Unavailabl e Social History Tobacco Use Types Packs/Day Years Used Date Smoking Tobacco: Never Assessed Sex and Gender Information Value Date Recorded Sex Assigned at Not on file Legal Sex Male 7:36 PM CDT Gender Identity Not on file Sexual Orientation Not on file Plan of Treatment Health Maintenance Due Date Last Done Comments Annual Physical 1997 Hepatitis C 01/05/2012 DTaP, Tdap and Td Vaccines ( 1 - Tdap) 2013 Hepatitis B Vaccines (1 of 3 - 19+ 3-dose series) 2013 COVID-19 Vaccine (2023-2 5 season) 2024 Influenza Adult (#1) 2024 HPV Vaccines Aged Out No longer eligi ble based on patient's age to complete this topic Meningococcal B Vaccine Aged Out No l onger eligible based on patient's age to complete this topic Meningococcal Vaccine Aged Out No oh filippo eligible based on patient's age to complete this topic Pneumococcal Vaccine: Pediat rics (0 to 5 Years) and At-Risk Patients (6 to 64 Years) Aged Out No longer eligible b ased on patient's age to complete this topic RSV Immunizations Under 20 Months Aged Out No longer eligible based on patient's age to complete this topic
--- OUTSIDE RECORDS SUMMARY | 2024-09-21 17:24 | XMS_ITS | Clinical Summary ---
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 Gender Identity Not on file Sexual Orientation Not on file Plan of Treatment Health Maintenance Due Date Last Done Comments Hepatitis C Virus (HCV) Screening 1994 Influenza Immunization (#1) 2024 SARS-COV-2 Immunization ( season) 2024 Respiratory Syncytial Virus (RSV) Immunization (Adult) (1 - 1-dose 75+ series) 2069 Hepatitis B Immunization Completed 994, 1994, 1994 DTaP/Tdap/Td Immunization Discontinued 2019, 02/14/1998, 03/11/1995, Additional history exists TdaP Immunization Completed 02/09/2020 Meningococcal Immunization (ACWY) Aged Out No longer eligible based on patient's age to complete this topic Pneumococcal Immunization Combined Aged Out No longer eligible based on patient's age to complete this topic Rotavirus Immunization Aged Out No lo nger eligible based on patient's age to complete this topic
[2024-09-21 17:41] LABS: Alanine Aminotransferase 34 U/L (6-50); Albumin Level 4.6 g/dL (3.5-5.1); Alkaline Phosphatase 99 U/L (38-126); Anion Gap 15 mmol/L (4-12); Aspartate Amino Transferase 43 U/L (17-59); Bilirubin,Total 1.5 mg/dL (0.2-1.3); Blood Urea Nitrogen 19 mg/dL (9-20); Calcium 9.8 mg/dL (8.4-10.2); Carbon Dioxide 21 mmol/L (22-30); Chloride 101 mmol/L (98-107); Creatine Kinase 551 U/L (55-170); Estimated Glomerular Filt Rate > 60; Glucose 110 mg/dL (65-110); Potassium 4.2 mmol/L (3.4-5.0); Sodium 137 mmol/L (137-145)
[2024-09-21 19:23] LABS: Reflex Lactic Acid Yes or No Add Lactic
--- OUTSIDE RECORDS SUMMARY | 2024-09-21 21:40 | XMS_ITS | Clinical Summary ---
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
--- OUTSIDE RECORDS SUMMARY | 2024-09-21 21:40 | XMS_ITS | Clinical Summary ---
Author Organization [facility] Address [address] [place] [id number] Care Team Providers Care Patient Relations Director Name Role Phone Unavailable Primary Care Provider [...]
== END 2024-09-21 21:34 | disposition left against medical advice (07) ==
LOC: ANHED 21:39
PROVIDERS: Emergency Provider Physician Assistant; PCP Nurse Practitioner Family
DX: T23.252A Burn of second degree of left palm, initial encounter (principal); T31.0 Burns involving less than 10% of body surface; W86.8XXA Exposure to other electric current, initial encounter
CPT/HCPCS: 36415; 80053; 82550; 83605; 83735; 84484; 85025; 93005; 99284